=== PATIENT | male | born 1980 ===

== ENCOUNTER 2020-05-19 12:03 | Outpatient (CLI) | payer OTHER | END 2020-05-19 12:04 | disposition short-term general hospital (02) | LOC: EMS 12:03 | PROVIDERS: ATTEND Surgery | DX: M54.2 Cervicalgia (principal); M79.605 Pain in left leg; M79.604 Pain in right leg; M25.472 Effusion, left ankle; X58.XXXA Exposure to other specified factors, initial encounter; Y92.410 Unspecified street and highway as the place of occurrence of the external cause | CPT/HCPCS: A0425; A0429 ==

== ENCOUNTER 2020-07-07 12:47 | Outpatient (CLI) | payer SELFPAY | END 2020-07-07 12:48 | disposition critical access hospital (66) | LOC: EMS 12:47 | PROVIDERS: ATTEND Surgery | DX: M54.9 Dorsalgia, unspecified (principal) | CPT/HCPCS: A0425; A0429 ==

== ENCOUNTER 2020-07-07 13:23 | Emergency (ER) | payer SELFPAY ==
[2020-07-07] MEDS ORDERED: DEXAMETHASONE 10 MG/ML VIAL PO STA (15:21)
[2020-07-07] MEDS ORDERED: CHERRY SYRUP 10 ML UDC PO ONE (15:21)
[2020-07-07] MEDS ORDERED: KETOROLAC 60 MG/2 ML VIAL IM STA (15:21)
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
[2020-07-07 17:08] VITALS: BP 134/72
== END 2020-07-07 17:08 | disposition home or self-care (01) ==
LOC: EDUNIT# → ED 13:23
DX: M62.830 Muscle spasm of back (principal)
CPT/HCPCS: 96372; 99283; 99284; A9270